=== PATIENT | female | born 1965 | race Caucasian/White ===

== ENCOUNTER 2019-08-15 12:06 | Inpatient (IN) | payer SELFPAY ==
[~2019-08-15] VITALS: Ht 167.6 cm; Wt 83.5 kg
[2019-08-15 12:14] VITALS: Ht 167.6 cm; Wt 83.5 kg
[2019-08-15 13:16] LABS: BASOPHIL % 0.1 % (0-2); PLATELET COUNT 286 x10^3mcL (130-400)
[2019-08-15 13:24] LABS: CALCIUM 9.6 mg/dL (8.5-10.1); CARBON DIOXIDE 25.2 mmol/L (21-32); CHLORIDE SERUM 102 mmol/L (98-107); CREATININE SERUM 0.7 mg/dL (0.6-1.0); GFR1 > 60 mL/min; GLUCOSE SERUM 326 mg/dL (74-106); POTASSIUM SERUM 4.2 mmol/L (3.5-5.1); SODIUM SERUM 137 mmol/L (136-145)
[2019-08-15 13:29] LABS: ALBUMIN 3.9 g/dL (3.4-5.0); ALKALINE PHOSPHATASE 119 U/L (46-116); ALT/SGPT 22 U/L (14-59); AST/SGOT 12 U/L (15-37); BILIRUBIN TOTAL 0.93 mg/dL (0.20-1.00); LIPASE 59 IU/L (73-393); TOTAL PROTEIN, SERUM 8.3 g/dL (6.4-8.2)
[2019-08-15 15:58] LABS: CHOLESTEROL/HDL RATIO 8.1
[2019-08-15 16:00] LABS: FREE T4 1.57 ng/dL (0.76-1.46); T4(THYROXINE) 11.7 ug/dL (4.7-13.3)
[2019-08-15 16:04] LABS: T3 TOTAL 1.26 ng/mL
[2019-08-15 18:40] VITALS: BP 145/82
[2019-08-15 19:54] LABS: microscopic required? NO
[2019-08-15 20:03] LABS: UA SPECIFIC GRAVITY 1.025 (1.005-1.035); urine erythrocyte NEGATIVE (NEGATIVE)
[2019-08-15 20:15] LABS: AMPHETAMINE QUAL UR NONE DETECTED (See below)
[2019-08-15 22:06] VITALS: BP 146/78
[2019-08-16 05:44] VITALS: BP 115/69
[2019-08-16 06:59] LABS: CALCIUM 8.8 mg/dL (8.5-10.1); CARBON DIOXIDE 22.1 mmol/L (21-32); CHLORIDE SERUM 104 mmol/L (98-107); CREATININE SERUM 0.6 mg/dL (0.6-1.0); GFR1 > 60 mL/min; GLUCOSE SERUM 219 mg/dL (74-106); MAGNESIUM 1.6 mg/dL (1.8-2.4); PHOSPHOROUS 2.8 mg/dL (2.5-4.9); POTASSIUM SERUM 3.5 mmol/L (3.5-5.1); SODIUM SERUM 139 mmol/L (136-145)
[2019-08-16 07:16] LABS: PLATELET COUNT 250 x10^3mcL (130-400); RED CELL DISTRIBUTION WIDTH 13.1 % (11.5-14.5)
[2019-08-16 07:18] LABS: BASOPHIL % 0 % (0-2)
[2019-08-16 08:31] VITALS: BP 135/78
[2019-08-16 13:29] VITALS: BP 148/81
[2019-08-16 17:38] VITALS: BP 130/111
[2019-08-16 20:37] VITALS: BP 146/77
[2019-08-17] VITALS (7 sets, daily range): BP systolic 114–155; BP diastolic 76–90
[2019-08-17 06:35] LABS: BASOPHIL % 0.4 % (0-2); PLATELET COUNT 233 x10^3mcL (130-400); RED CELL DISTRIBUTION WIDTH 13.1 % (11.5-14.5)
[2019-08-17 06:50] LABS: CALCIUM 8.8 mg/dL (8.5-10.1); CARBON DIOXIDE 26.7 mmol/L (21-32); CHLORIDE SERUM 103 mmol/L (98-107); CREATININE SERUM 0.5 mg/dL (0.6-1.0); GFR1 > 60 mL/min; GLUCOSE SERUM 113 mg/dL (74-106); MAGNESIUM 1.6 mg/dL (1.8-2.4); PHOSPHOROUS 2.6 mg/dL (2.5-4.9); POTASSIUM SERUM 3.1 mmol/L (3.5-5.1); SODIUM SERUM 138 mmol/L (136-145)
[2019-08-18 05:38] VITALS: BP 109/71
[2019-08-18 06:17] LABS: BASOPHIL % 0.3 % (0-2); PLATELET COUNT 218 x10^3mcL (130-400); RED CELL DISTRIBUTION WIDTH 13.3 % (11.5-14.5)
[2019-08-18 06:55] LABS: CALCIUM 8.1 mg/dL (8.5-10.1); CARBON DIOXIDE 22.7 mmol/L (21-32); CHLORIDE SERUM 102 mmol/L (98-107); CREATININE SERUM 0.5 mg/dL (0.6-1.0); GFR1 > 60 mL/min; GLUCOSE SERUM 96 mg/dL (74-106); MAGNESIUM 1.7 mg/dL (1.8-2.4); PHOSPHOROUS 2.4 mg/dL (2.5-4.9); POTASSIUM SERUM 3.5 mmol/L (3.5-5.1); SODIUM SERUM 138 mmol/L (136-145)
[2019-08-18 09:26] VITALS: BP 126/78
[2019-08-18 16:26] VITALS: BP 156/88
[2019-08-18 20:40] VITALS: BP 147/74
[2019-08-19 05:46] VITALS: BP 121/71
[2019-08-19 06:31] LABS: BASOPHIL % 0.3 % (0-2); PLATELET COUNT 247 x10^3mcL (130-400); RED CELL DISTRIBUTION WIDTH 12.9 % (11.5-14.5)
[2019-08-19 06:55] LABS: CALCIUM 8.7 mg/dL (8.5-10.1); CARBON DIOXIDE 21.6 mmol/L (21-32); CHLORIDE SERUM 100 mmol/L (98-107); CREATININE SERUM 0.5 mg/dL (0.6-1.0); GFR1 > 60 mL/min; GLUCOSE SERUM 104 mg/dL (74-106); MAGNESIUM 1.9 mg/dL (1.8-2.4); PHOSPHOROUS 3.2 mg/dL (2.5-4.9); POTASSIUM SERUM 3.9 mmol/L (3.5-5.1); SODIUM SERUM 136 mmol/L (136-145)
[2019-08-19 08:47] VITALS: BP 120/61
[2019-08-19 12:04] LABS: ALBUMIN 3.2 g/dL (3.4-5.0); BILIRUBIN DIRECT 0.24 mg/dL (0.0-0.2); BILIRUBIN TOTAL 1.7 mg/dL (0.20-1.00); TOTAL PROTEIN, SERUM 7.5 g/dL (6.4-8.2)
[2019-08-19 12:45] VITALS: BP 148/94
[2019-08-19 18:06] VITALS: BP 141/88
[2019-08-19 20:52] VITALS: BP 129/92
[2019-08-20 05:36] VITALS: BP 96/68
[2019-08-20 07:14] LABS: BASOPHIL % 0.3 % (0-2); PLATELET COUNT 255 x10^3mcL (130-400); RED CELL DISTRIBUTION WIDTH 12.9 % (11.5-14.5)
[2019-08-20 07:18] LABS: CHLORIDE SERUM 100 mmol/L (98-107); CREATININE SERUM 0.6 mg/dL (0.6-1.0); GFR1 > 60 mL/min; GLUCOSE SERUM 142 mg/dL (74-106); POTASSIUM SERUM 3.6 mmol/L (3.5-5.1); SODIUM SERUM 136 mmol/L (136-145)
[2019-08-20] MEDS ORDERED: GLUCOSE TEST S1 EACH MC (07:55)
[2019-08-20] MEDS ORDERED: BLOOD LANCETS1 EACH TOP (07:56)
[2019-08-20] MEDS ORDERED: METFORMIN500 M1 GT (07:57)
[2019-08-20] MEDS ORDERED: LIPITOR10 MG GT (07:58)
[2019-08-20] MEDS ORDERED: PEPCID AC20 M2 PO (07:58)
[2019-08-20] MEDS ORDERED: ZOFRAN4 M3 PO (07:59)
[2019-08-20 08:17] VITALS: BP 137/86
[2019-08-20 12:08] VITALS: BP 144/88
[2019-08-20 17:37] VITALS: BP 133/73
[2019-08-20 20:35] VITALS: BP 121/84
[2019-08-21 05:51] VITALS: BP 95/64
[2019-08-21 06:21] LABS: ALBUMIN 3.4 g/dL (3.4-5.0); ALKALINE PHOSPHATASE 120 U/L (46-116); ALT/SGPT 21 U/L (14-59); AST/SGOT 15 U/L (15-37); BILIRUBIN TOTAL 1.46 mg/dL (0.20-1.00); CALCIUM 9.3 mg/dL (8.5-10.1); CARBON DIOXIDE 20.5 mmol/L (21-32); CHLORIDE SERUM 102 mmol/L (98-107); CREATININE SERUM 0.8 mg/dL (0.6-1.0); GFR1 > 60 mL/min; GLUCOSE SERUM 172 mg/dL (74-106); MAGNESIUM 1.6 mg/dL (1.8-2.4); PHOSPHOROUS 3.8 mg/dL (2.5-4.9); POTASSIUM SERUM 3.6 mmol/L (3.5-5.1); SODIUM SERUM 138 mmol/L (136-145); TOTAL PROTEIN, SERUM 8.1 g/dL (6.4-8.2)
[2019-08-21 06:26] LABS: BASOPHIL % 0.4 % (0-2); PLATELET COUNT 263 x10^3mcL (130-400)
[2019-08-21 08:54] VITALS: BP 138/85
[2019-08-21] MEDS ORDERED: REGLAN10 M1 PO (11:29)
[2019-08-21 11:35] VITALS: BP 133/86
[2019-08-21 11:41] VITALS: BP 133/86
[2019-08-21] MEDS ORDERED: ATIVAN0.5 M1 PO (11:51)
== END 2019-08-21 13:09 | disposition home or self-care (01) | DRG 392 ==
LOC: ED 12:06 → MU 16:06
PROVIDERS: Emergency Medicine; Family Medicine; Internal Medicine Gastroenterology; ADMIT Internal Medicine
PROC: 0DB18ZX Excision of Upper Esophagus, Via Natural or Artificial Opening Endoscopic, Diagnostic (ICD-10-PCS; 2019-08-17)
PROC: 0DB28ZX Excision of Middle Esophagus, Via Natural or Artificial Opening Endoscopic, Diagnostic (ICD-10-PCS; 2019-08-17)
PROC: 0DB38ZX Excision of Lower Esophagus, Via Natural or Artificial Opening Endoscopic, Diagnostic (ICD-10-PCS; principal; 2019-08-17 12:30)
PROC: 0DB68ZX Excision of Stomach, Via Natural or Artificial Opening Endoscopic, Diagnostic (ICD-10-PCS; 2019-08-17 12:30)
DX: A08.39 Other viral enteritis (principal); E44.1 Mild protein-calorie malnutrition; E11.9 Type 2 diabetes mellitus without complications; K21.0 Gastro-esophageal reflux disease with esophagitis; E78.5 Hyperlipidemia, unspecified; E66.9 Obesity, unspecified; T40.7X5A Adverse effect of cannabis (derivatives), initial encounter; F12.90 Cannabis use, unspecified, uncomplicated; E83.39 Other disorders of phosphorus metabolism; K44.9 Diaphragmatic hernia without obstruction or gangrene; E87.6 Hypokalemia; E83.42 Hypomagnesemia; Z68.35 Body mass index [BMI] 35.0-35.9, adult; Z90.49 Acquired absence of other specified parts of digestive tract; Z90.710 Acquired absence of both cervix and uterus; Z98.51 Tubal ligation status; Y92.89 Other specified places as the place of occurrence of the external cause
CPT/HCPCS: 43235; 82962; 84439; 87046; 87046-59; 87804; A9698; C9113; G0378; J0780; J1200; J1610; J1815; J2060; J2250; J2270; J2310; J2405; J2765; J3010; J3475; J3480; J3490; J7030; J7040; J7131; J8597; Q0092